=== PATIENT | female | born 1995 | race Caucasian/White ===

== ENCOUNTER 2017-05-30 08:48 | Emergency (ER) | payer OTHER ==
--- NOTE | 2017-05-30 10:03 | ER NURSING DOCUMENTATION ---
Nurse's Notes [facility] Name:Kendra Olmstead Age:21 yrs Sex:Female :1995 Arrival Date:05/30/2017 Time:08:48 Bed6 Private MD: Diagnosis:Knee Contusion Presentation: 05/30 08:50 Presenting complaint: Patient states: pt had a long boarding accendent about [address] ago and has had right knee pain since. pt has been able to to hike, bike and remain active however it hurts to kneel. Transition of care: Home. 08:50 Method Of Arrival: Private Vehicle st 08:52 Acuity: NILS 4 st Triage Assessment: 08:50 General: Appears in no apparent distress, Behavior is cooperative. Pain: Complains of st pain in right knee Pain currently is 0 out of 10 on a pain scale. Aggravated by pressure on the knee cap. Cardiovascular: No deficits noted. Respiratory: No deficits noted. GI: No deficits noted. Derm: No deficits noted. Musculoskeletal: Circulation, motion, and sensation intact Range of motion intact in all extremities. Swelling absent Reports pain in left knee. Historical: - Allergies: No known drug Allergies; - Home Meds: 1. meds for seasonal alergies - PSHx: Tonsillectomy; - Tetanus: < 10 years. - Ebola Screening: : Patient denies exposure to infectious person. Patient denies travel to an Ebola-affected area in the 21 days before illness onset. . - Social history: Smoking status: Patient states was never smoker of tobacco. Patient/guardian denies using alcohol, marijuana. Screenin:59 Infectious Disease Risk None. Abuse screen: Denies threats or abuse. Denies injuries st from another. Nutritional screening: No deficits noted. Vital Signs: 09:58 BP 126 / 72; Pulse 75; Temp 98.3; Pulse Ox 95% ; Pain 0/10; st ED Course: 08:50 Patient arrived in ED. ds 08:51 Kev Chavez MD is Attending Physician. cd 08:52 Debbie Nichols RN is Primary Nurse. st 08:[address] 09:16 Patient moved to radiology. pm1 09:28 Patient moved back from radiology. pm1 09:[address] injury. st 09:59 Valu[address] with patient. st 10:00 Pilo wrap to right knee. st Administered Medications: No medications were administered Outcome: 09:54 Discharge ordered by . kyree 10:02 Discharged to home ambulatory. st 10:02 Condition: stable 10:02 Discharge instructions given to patient, Instructed on discharge instructions, follow up and referral plans. medication usage. 10:02 [address] ED[address] st 05/31 09:57 Discharge F/U Call: Spoke with: patient. Are you having any pain? no. How are you lp managing your pain? Heat/Ice Signatures: Debbie Nichols, RN POP Cris Pulliam RN RN lp Srot, Roxanna, Reg Reg Kev Morales MD MD cd McBride, Philisha pm1
--- NOTE | 2017-05-30 10:03 | ER PHYSICIAN DOCUMENTATION ---
Physician Documentation [facility] Name:Kendra Olmstead Age:21 yrs Sex:Female :1995 Arrival Date:05/30/2017 Time:08:48 Bed6 Private MD: Kev Nova Disposition: 05/30 10:15 Chart complete. cd Disposition: 05/30/17 09:54 Discharged to Home/Self Care. Impression: Knee Contusion. - Condition is Good. - Discharge Instructions: CONTUSION, Lower Extremity. - Medical Reconciliation form form. - Follow up: Private Physician; When: 10 - 14 days; Reason: Recheck today's complaints, Continuance of care. - Problem is new. - Symptoms are unchanged. - Notes: Ice packs, rest, Pilo wrap for 4 - 5 days. Take Ibuprofen 600mg by mouth every 6 hours with food for 4 - 5 days. Limit hiking and walking as much as possible for 7 - 10 days. Elevate leg above your heart after work each day. HPI: 08:55 This 21 yrs old Female presents to ER via Private Vehicle with complaints of cd Knee Pain - RT. 08:55 The patient presents with a contusion, pain, that is chronic. The complaints affect the cd right knee. Context: The problem was sustained outdoors, resulted from the patient falling, while walking, on her right kneecap, the patient can fully bear weight, the patient is able to ambulate. Onset: The symptom(s)/episode began/occurred acutely, 5 week(s) ago, but continues to have pain. She was not initially seen by a physician, no x-rays taken.. Modifying factors: The symptoms are alleviated by remaining still, the symptoms are aggravated by movement. Associated signs and symptoms: The patient has no apparent associated signs or symptoms. Treatment prior to arrival includes: over the counter medications, NSAIDS. 08:55 Severity of symptoms: At their worst the symptoms were moderate, in the emergency cd department the symptoms have improved, moderately. Historical: - Allergies: No known drug Allergies; - Home Meds: 1. meds for seasonal alergies - PSHx: Tonsillectomy; - Tetanus: < 10 years. - Ebola Screening: : Patient denies exposure to infectious person. Patient denies travel to an Ebola-affected area in the 21 days before illness onset. . - Social history: Smoking status: Patient states was never smoker of tobacco. Patient/guardian denies using alcohol, marijuana. ROS: 10:00 MS/extremity: Positive for contusion, tenderness. cd 10:00 Constitutional: Negative for fever, poor PO intake. cd 10:00 MS/extremity: Negative for decreased range of motion, deformity, ecchymosis, erythema. 10:00 All other systems are negative. Exam: 10:00 Constitutional: The patient appears in no acute distress, alert, awake, anxious. cd 10:00 Musculoskeletal/extremity: Extremities: grossly normal except: noted in the right knee: contusion, swelling, tenderness, ROM: no acute changes, Circulation is intact in all extremities. Sensation intact. 10:00 Skin: Exam negative for acute changes. Vital Signs: 09:58 BP 126 / 72; Pulse 75; Temp 98.3; Pulse Ox 95% ; Pain 0/10; st MDM: 08:51 Patient medically screened. cd 09:00 Data interpreted: Pulse oximetry: on room air is 95 %. Interpretation: normal. cd 10:05 Data reviewed: vital signs, nurses notes, old medical records, radiologic studies, cd plain films, and as a result, I will discharge patient. 10:15 Counseling: I had a detailed discussion with the patient and/or guardian regarding: the cd historical points, exam findings, and any diagnostic results supporting the discharge/admit diagnosis, radiology results, the need for outpatient follow up, for a recheck, with the patient's primary care provider, to return to the emergency department if symptoms worsen or persist or if there are any questions or concerns that arise at home. 05/31 13:49 Order name: KNEE; [address] [place] [id number]; Complete Time: 09:04 EDSD 06/01 09:04 Interpretation: Normal. cd 05/30 09:11 Order name: Ice Packs; Complete Time: 09:52 cd 05/30 09:56 Order name: ORTHO: 6" Pilo Wrap; Complete Time: 10:00 cd Dispensed Medications: No medications were administered Signatures: Debbie Nichols RN Kev Villa MD MD cd
--- NOTE | 2017-05-31 13:34 | RADIOLOGY REPORT ---
Four views of the right knee demonstrate no displaced fracture or dislocation. The joints appear unremarkable. IMPRESSION: No displaced injury. If clinically indicated, further evaluation and/or follow-up may be of benefit. MTDD
== END 2017-05-30 10:03 | disposition home or self-care (01) ==
LOC: ER 08:48
DX: S80.01XA Contusion of right knee, initial encounter (principal); W18.30XA Fall on same level, unspecified, initial encounter; Y92.89 Other specified places as the place of occurrence of the external cause; Y93.01 Activity, walking, marching and hiking
CPT/HCPCS: 99283